=== PATIENT | female | born 1955 | race Caucasian/White ===

== ENCOUNTER 2019-02-28 17:29 | Emergency (ER) | payer BC, SELFPAY ==
[2019-02-28 17:31] VITALS: BP 137/78; PULSE 61; RESP 17; TEMP 37.2; O2SAT 100; BMI 22.8
--- NOTE | 2019-02-28 17:34 | NURSING ---
NO OLD EKGS
--- NOTE | 2019-02-28 18:00 | EKG12_ITS ---
Test Reason : CP Blood Pressure : / mmHG Vent. Rate : 059 BPM Atrial Rate : 059 BPM P-R Int : 156 ms QRS Dur : 074 ms QT Int : 464 ms P-R-T Axes : 048 -02 053 degrees QTc Int : 459 ms Sinus bradycardia Low voltage QRS (Limb Leads) Confirmed by TESSIE PATE, FAINA ([id number]), department editor ROSEANN ONEILL ([id number]) on 03/04/2019 1:38:17 PM Referred By: Confirmed By:FAINA KURTZ MD
--- NOTE | 2019-02-28 18:00 | CT_ITS ---
STUDY: CTA CHEST REASON FOR EXAM: Female, 63 years old. Chest pain RADIATION DOSAGE (If Supplied By Facility): CTDIvol = ( 4.91 ) mGy, DLP = ( 138.09 ) mGycm TECHNIQUE: The examination was performed with the intravenous administration of 75ML IV Isovue 370. Post-processing of the angiographic images was performed, with multiplanar reformation and 3D reconstruction. Individualized dose optimization techniques were used for this CT. COMPARISON: None. FINDINGS: Normal enhancement of the main pulmonary artery and right and left pulmonary arteries. Normal enhancement of the bilateral peripheral pulmonary arteries. There is no demonstrated pulmonary embolism. Normal thoracic aorta and visualized great vessels. There is no demonstrated aortic dissection. Normal heart and pericardium. Normal mediastinum. Normal hilar regions. Normal visualized trachea and bronchi. The lungs are well expanded. Right pulmonary calcified granulomas and hilar granulomatous calcifications.. Normal pleura. Normal chest wall structures. Mild degenerative vertebral changes Normal visualized upper abdomen. CT/CTA Chest W/WO Contrast IMPRESSION: No demonstrated pulmonary embolism or arterial dissection. Granulomatous calcifications are noted. Electronically Signed: Ernie Blankenship DO at 19:00 EDT Tel [phone], Service support ,
[2019-02-28 18:02] VITALS: O2SAT 100
[2019-02-28] MEDS: 0.9% Normal Saline 1,000 ML 1000 ML IV (18:07)
[2019-02-28 18:09] LABS: Absolute Neutrophil Count 2.2 X10^3/uL (2.0-7.7); Basophil# 0.02 X10^3/uL; Basophil% 0.3 % (0-1); Eosinophil# 0.58 X10^3/uL; Eosinophils% 9.5 % (0-5); Hematocrit 39.8 % (37-47); Hemoglobin 13.8 g/dl (12.0-15.0); Lymphocyte % 45.8 % (19-41); Mean Corp Hgb Conc 34.7 g/gl (32-36); Mean Corpuscular Volume 95.2 fL (81-99); Mean Platelet Vol. 9.9 fl (6.2-12.0); Monocyte# 0.46 X10^3/uL; Monocyte% 7.5 % (0-10); Neutrophil # 2.24 X10^3/uL (2.7-7.7); Neutrophil % 36.7 % (47-70); Platelet Count 266 K/mm3 (150-450); RBC Distribution Width CV 12.5 % (11.6-14.6); RBC Distribution Width SD 43.2 fl (35.1-43.9); Red Blood Count 4.18 M/mm3 (4.2-5.4); White Blood Count 6.1 K/mm3 (4.4-11.0)
[2019-02-28 18:10] LABS: POSITIVE COUNT NO; POSITIVE DIFFERENTIAL NO; POSITIVE MORPHOLOGY NO
[2019-02-28 18:20] LABS: Anion Gap 6 (5-15); BUN 14 mg/dL (7-18); BUN/Creat Ratio 15.7 RATIO (10-20); Calcium,Total 9.1 mg/dL (8.5-10.1); Chloride 103 mmol/L (98-107); Creatinine, Serum 0.89 mg/dL (0.55-1.02); EST Glomerular Filtration Rate 68 mL/min (>60); Est Glom Filt Rate - Afr Amer 82 mL/min (>60); Estimated Creatinine Clearance 51.17 ml/min; Glucose 98 mg/dL (74-106); Potassium 3.4 mmol/L (3.5-5.1); Sodium Level 136 mmol/L (136-145)
[2019-02-28 18:45] VITALS: BP 145/76; PULSE 58; RESP 17; O2SAT 99
[2019-02-28 19:13] VITALS: BP 120/70; PULSE 58; RESP 13; O2SAT 97
[2019-02-28 20:34] VITALS: BP 110/73; PULSE 52; RESP 13; O2SAT 96
--- NOTE | 2019-02-28 21:10 | ED.DCSUM_ITS ---
- ER Visit Summary Date of Service: 02/28/19 Chief Complaint: Chest pain History of Present Illness: The patient is a 63 F presents the emergency department with chest pain. Patient is from [place]. Approximately 2 weeks ago she was kicked in the posterior left calf by a cow. She had some swelling and a lot of bruising. Since then she has had multiple long trips including to [facility] and 2 here in [place]. She states today she was at rest when she had a sudden discomfort in her chest. This been waxing and waning. Difficult to describe. She notes no significant medical problems note that she is in very good shape. She is a non-smoker. She is very concerned about pulmonary embolism. Physical Examination: Afebrile vital signs are stable Gen: Well-nourished well-developed Head: Normocephalic atraumatic Eyes: Perrl EOMI ENT: TMs clear no rhinorrhea moist mucous membranes Neck: Supple no lymphadenopathy no JVD nontender CVS: Regular rate rhythm no murmurs normal S1-S2 Respiratory: No distress clear to auscultation bilaterally chest nontender Abdomen: Soft nontender nondistended normal bowel sounds no masses Back: Nontender Extremity: The left distal leg is ecchymotic down to the foot. There is no cords. No significant swelling bilaterally. Skin: Normal color no rash Neuro: alert orientated ?3 CN II-XII intact normal strength sensation reflexes gait cerebellar Psych: Appears anxious with some pressured speech and fast movement of her legs. Test Results: EKG demonstrates a normal sinus bradycardia at a rate of 59. CBC chemistries and 2 sets of cardiac enzymes were negative. CT Brianna of the chest was negative for PE and dissection. Granulomatous disease noted. Emergency Department Course and Treatment: She is GONZALES score is 0 and her heart score is 1. Patient can follow-up as an outpatient. Return if worsening or concerns. Impression: 1. Acute chest pain This note was generated with [employer] dictation software. It may contain incorrect words, spelling, and punctuation that were not noted in review of the chart prior to signing ED Disposition - Plan for ED Patient: Disposition: Home or Assisted Living Instructions: CHEST PAIN, Uncertain Cause Referrals: [facility] Doctor,Out of [Primary Care Provider] - As soon as possible
[2019-02-28 21:37] VITALS: BP 147/86; PULSE 43; RESP 14; O2SAT 99
== END 2019-02-28 21:38 | disposition home or self-care (01) ==
PROVIDERS: Emergency Provider Emergency Medicine
DX: R07.89 Other chest pain (principal); S80.12XA Contusion of left lower leg, initial encounter; W55.22XA Struck by cow, initial encounter; Y93.9 Activity, unspecified; Y92.9 Unspecified place or not applicable
CPT/HCPCS: 36415; 71275; 80048; 84484; 85025; 93005; 96360; 96361; 99285; J7030; Q9967